=== PATIENT | female | born 1980 | race Caucasian/White ===

== ENCOUNTER 2023-03-25 12:08 | Day surgery (SDC) | payer OTHER ==
[~2023-03-25] VITALS: Ht 170.2 cm; Wt 83.9 kg
[2023-03-25] MEDS ORDERED: LIDOCAINE 2% 100 MG/5 ML UJET TP ONE (12:50)
[2023-03-25] MEDS ORDERED: fentaNYL citrate 0.05 MG/ML VIAL ONE (12:50)
[2023-03-25] MEDS ORDERED: diphenhydrAMINE 50 MG/ML VIAL ONE (12:50)
[2023-03-25] MEDS ORDERED: MIDAZOLAM 5 MG/5 ML VIAL ONE (12:50)
[2023-03-25] MEDS ORDERED: fentaNYL citrate 0.05 MG/ML VIAL IVP ONE (13:40)
[2023-03-25] MEDS ORDERED: diphenhydrAMINE 50 MG/ML VIAL IVP ONE (13:40)
[2023-03-25] MEDS ORDERED: MIDAZOLAM 2 MG/2 ML VIAL IVP ONE (13:40)
== END 2023-03-25 14:30 | disposition home or self-care (01) ==
LOC: MDS 12:08 → MMU 12:09 → MDS 14:30
PROVIDERS: ATTEND Internal Medicine Gastroenterology
DX: K62.5 Hemorrhage of anus and rectum (principal); K29.50 Unspecified chronic gastritis without bleeding; K64.4 Residual hemorrhoidal skin tags; K64.8 Other hemorrhoids
CPT/HCPCS: 43239; 45378; J1200; J2250; J3010; 88305; 88312; 88313